=== PATIENT | female | born 1950 | race Caucasian/White ===

== ENCOUNTER → 2016-07-01 | Outpatient (CLI) | payer OTHER ==
[~2016-07-01] MED LIST: ACTONEL 35 MG35 M1 PO; BACTROBAN NASAL1 GM NASAL; COLACE100 MG PO; FISH OIL 1,001000 M2 PO; FOLIC ACID1 MG PO; HYDROCODON-ACE1 EAC7 PO; HYDROCODONE-AP1 EAC6 PO; HYDROXYCHLOROQ200 M1 PO; IRON325 PO; METHOTREXATE 22.5 M1 PO; MOBIC15 MG PO; MOBIC7.5 MG PO; PREVACID30 MG PO; PRILOSEC20 MG PO; XARELTO10 MG PO
--- NOTE | ~2016-07-01 | PFR/MVV ---
[facility] [place] [address] PULMONARY FUNCTION MVV/REPORT Name: KADIE BALLESTEROS Room #: [facility]#: [id number] Admission: 07/01/16 Attend Phys: Yvon Recinos MD Discharge: Date of : 54 Report #: [id number] THIS REPORT FOR: //name// COPIES FOR: AGE: 65 SEX/RACE: F/C >> SPIROMETRY: (BTPS) Height: 63 in cm Weight: 120 lbs kg Exam Date: 07/01/16 PRE-RX POST-RX PRED BEST %PRED BEST %PRED %CHG FVC LITERS . 2.84 . 4.20 . 148 . 3.86 . 136 . -8 FEV1 LITERS . 2.29 . 2.99 . 130 . 2.86 . 125 . -4 FEV1/FVC % . 83 . 71 . 86 . 74 . 90 . 4 RHO86-67% L/Sec . 2.45 . 1.91 . 78 . 2.18 . 89 . 15 PEF L/SEC . 5.53 . 7.84 . 142 . 7.83 . 142 . -0 FEF50/FIF50 UNITLESS . <1.00 . 0.68 . . 0.77 . . 12 MVV L/Min . 89 . 66 . 74 f 1/Min . . 95 . >> LUNG VOLUMES: (BTPS) PRE-RX POST-RX PRED AVG %PRED AVG %PRED %CHG VC Liters . 2.84 . 4.49 . 158 . . . TLC Liters . 4.67 . 7.44 . 159 . . . RV Liters . 1.79 . 2.95 . 165 . . . RV/TLC % . 38 . 40 . 103 . 2.84 . 4.[address] Liters . 2.84 . . . . . FRC N2 Liters . 2.84 . . . . . ERV Liters . . 1.36 . . . . IC Liters . . 3.21 . . . . >> DIFFUSION: DLCO ml/Min/mmHg . 17.2 . 11.7 . 68 . . . DL [place] ml/Min/mmHg . 17.2 . 11.7 . 68 . . . DLCO/VA ml/Min/mmHg . 3.67 . 5.37 . 146 . . . VA Liters . . 2.17 . . . . [facility] [address] [place] [address] PULMONARY FUNCTION MVV/REPORT Name: KADIE BALLESTEROS Merna Room #: [facility]#: [id number] Admission: 07/01/16 Attend Phys: Yvon Recinos MD Discharge: Date of : 54 Report #: [id number] COMMENTS: COMMENTS: >> RESISTANCE: PRE-RX PRED AVG %PRED Raw Total cmH20/L/Sec . . 3.56 . Raw Insp cmH20/L/Sec . . 3.62 . Raw Exp cmH20/L/Sec . . 3.62 . Raw cmH20/L/Sec . 1.34 . 1.90 . 142 Gaw L/Sec/cmH20 . 0.682 . 0.526 . 77 sRaw cmH20 Sec . 3.81 . 7.18 . 188 sGaw l/cmH20 Sec . 0.262 . 0.139 . 53 Vtq Liters . . 3.78 . # = OUTSIDE 95% CONFIDENCE INTERVAL CALIBRATION: PRED: 3.00 ACTUAL: EXP 3.01 INSP 3.02 [facility]-10-06 [facility]-05 N-1804-4 >> INTERPRETATION/IMPRESSION: CC: Yvon Recinos DATE OF SERVICE: 07/01/2016 NOTATION: Full pulmonary function test revealed normal spirometry. There are no significant changes in bronchodilators. Lack of improvement with bronchodilators does not preclude a therapeutic trial of bronchodilator medications. Lung volumes are normal. DLCO is also normal. OVERALL IMPRESSION: Normal pulmonary function study. <ELECTRONICALLY SIGNED> By: Harrison Bee MD 07/05/16 1510 Harrison Bee MD /nt
== END ==
LOC: PUL 08:18
DX: R06.00 Dyspnea, unspecified (principal)

== ENCOUNTER → 2017-04-06 | Outpatient (CLI) | payer OTHER | LOC: ULTRA 07:59 | DX: K90.9 Intestinal malabsorption, unspecified (principal); K63.89 Other specified diseases of intestine ==

== ENCOUNTER → 2017-06-09 | Outpatient (CLI) | payer OTHER | LOC: RAD 01:21 | DX: Z12.31 Encounter for screening mammogram for malignant neoplasm of breast (principal) ==